=== PATIENT | female | born 1985 | race Caucasian/White ===

== ENCOUNTER 2021-09-30 08:21 | Emergency (ER) | payer BC, MEDICAID ==
[2021-09-30 09:40] LABS: CORONAVIRUS COVID-19 NAA NEGATIVE (NEGATIVE); INFLUENZA A NAA NEGATIVE (NEGATIVE); INFLUENZA B NAA NEGATIVE (NEGATIVE)
[2021-09-30] MEDS ORDERED: Ketorolac 15 MG/ML SDV IM ONE (09:43)
[2021-09-30] MEDS ORDERED: Dexamethasone 4 MG Tab PO ONE (09:49)
--- NOTE | 2021-09-30 09:50 | EDM.PDOC ---
ED HPI GENERAL MEDICAL PROBLEM - General Chief Complaint: General Stated Complaint: SOAR THROAT, BODY ACHES, FEVER, CONGESTED Time Seen by Provider: 09/30/21 08:41 - History of Present Illness INITIAL COMMENTS - FREE TEXT/NARRATIVE: CHIEF COMPLAINT(S): "I feel like I am going to ." HISTORY OF PRESENT ILLNESS: This is a 36-year-old woman with out any reported past medical history who comes to the emergency department with a chief complaint of "I feel like I am going to ." The patient states that she feels like she is going to . The patient states that for the last 2 days she has been experiencing sinus congestion, sore throat, body aches throughout her entire body and a headache which is bifrontal not associated with any blurry vision, double vision, numbness, tingling or weakness. She states that her pain is rated 8 out of 10 and achy. She states that she tried NyQuil but that did not help with the pain and just helped her sleep. There are no exacerbating factors and no relieving factors. Her pain is throughout her body so she denies any radiation. She states that she does have an associated nonproductive cough and did have some nausea last night but denies any current nausea vomiting, drooling, voice changes, stridor, or trismus. She states that she is not vaccinated. She denies any other symptoms REVIEW OF SYSTEMS: Constitutional: Positive for intermittent fever. Eyes: Denies eye pain Ears, Nose, Mouth, & Throat: Positive for sore throat and sinus congestion. Denies earache Cardiovascular: Denies chest pain Respiratory: Positive for nonproductive cough denies shortness of breath Gastrointestinal: Denies Nausea, vomiting, diarrhea, hematochezia. Genitourinary: Denies hematuria Skin:Denies a rash MSK: Positive for body aches Neurological: Positive for headache. Denies blurred vision, numbness, tingling, weakness Psychiatric: Denies depression PAST MEDICAL HISTORY: As per history of present illness and as reviewed below otherwise noncontributory. SURGICAL HISTORY: As per history of present illness and as reviewed below otherwise noncontributory. SOCIAL HISTORY: As per history of present illness and as reviewed below otherwise noncontributory. FAMILY HISTORY: As per history of present illness and as reviewed below otherwise noncontributory. EXAMINATION OF ORGAN SYSTEMS/BODY AREAS: Constitutional: Blood pressure is 127/77, heart rate 98, respiratory rate 16 with an oxygen saturation of 97% on room air. Temperature 36.6 General: Well-appearing woman who is in no acute distress Psychiatric: Appropriate mood and affect. Eyes: No scleral icterus or conjunctival erythema ENMT: Moist mucous membranes. Mild pharyngeal erythema. No tonsillar exudates or swelling. Uvula was midline. No evidence of peritonsillar abscess. No stridor, drooling, trismus. Bilateral nasal turbinates with clear nasal drainage. Cardiovascular: Regular, rate, and rhythm. No gallops, murmurs, or rubs. Bilateral upper extremity pulses symmetric and intact. No peripheral edema. No JVD. Respiratory: Lungs clear to auscultation bilaterally. No wheezes, rales, or rhonchi. Gastrointestinal: Soft, non-tender, non-distended. Normoactive bowel sounds Genitourinary: No suprapubic tenderness Musculoskeletal: Normal range of motion. Skin: No lesions or abrasions. Neurological: Alert, GCS 15 strength and sensation grossly intact in upper and lower extremities bilaterally MEDICAL DECISION MAKING AND COURSE IN THE ED WITH INTERPRETATION/REVIEW OF DIAGNOSTIC STUDIES: This is a 36-year-old woman without any past medical history who comes to the emergency department with viral-like symptoms with cough whose vitals are completely normal. At this time we will provide the patient with Toradol for pain relief. Will obtain Covid and influenza swabs. I do not belie ve any other labs or imaging are indicated. Patient was amenable to this plan DDx: COVID-19, influenza, viral pharyngitis, viral upper respiratory infection Laboratory: Covid, influenza negative After swab I did discuss the results with the patient. At this time I did discuss that she would be stable for discharge. I discussed symptomatic treatment at home. She was amenable to discharge and had no further questions. DISPOSITION: The patient was discharged home in stable condition. The patient will follow up with primary care physician in 3 to 5 days CONDITION: Fair PROCEDURES: None FINAL IMPRESSION(S)/DIAGNOSES: 1. Acute viral upper respiratory infection Justo Yanez M.D. Generalized Pain Score (Numeric/FACES): 8 - Related Data Allergies Allergy/AdvReac Type Severity Reaction Status Date / Time No Known Allergies Allergy Verified 09/30/21 08:40 Past Medical History Other [employer] History: 3 c-sections - Infectious Disease History Infectious Disease History: Reports: None - Past Surgical History GI Surgical History: Reports: Cholecystectomy Social & Family History - Family History Family Medical History: No Pertinent Family History - Tobacco Use Tobacco Use Status *Q: Current Some Day Tobacco User Years of Tobacco use: 15 Packs/Tins Daily: 0.5 - Recreational Drug Use Recreational Drug Use: No ED ROS GENERAL - Review of Systems Review Of Systems: See Below ED EXAM, GENERAL - Physical Exam Exam: See Below Course - Vital Signs Last Recorded V/S: Last Vital Signs Temp 36.6 C 09/30/21 08:40 Pulse 98 09/30/21 08:40 Resp 16 09/30/21 08:40 BP 127/77 09/30/21 08:40 Pulse Ox 97 09/30/21 08:40 - Orders/Labs/Meds Labs: Laboratory Tests 09/30/21 Range/Units 08:48 Influenza Type A RNA NEGATIVE (NEGATIVE) Influenza Type B RNA NEGATIVE (NEGATIVE) SARS-CoV-2 RNA (CHRISTOPHER) NEGATIVE (NEGATIVE) Meds: Medications Discontinued Medications Generic Name Dose Route Start Last Admin Trade Name Freq PRN Reason Stop Dose Admin Dexamethasone 4 mg 09/30/21 09:49 09/30/21 10:13 Dexamethasone 4 Mg Tab PO 09/30/21 09:50 4 mg ONETIME ONE Administration Ketorolac Tromethamine 30 mg 09/30/21 09:43 09/30/21 10:13 Ketorolac 15 Mg/Ml Sdv IM 09/30/21 09:44 30 mg ONETIME ONE Administration Departure - Departure Time of Disposition: 09:50 Disposition: Home, Self-Care 01 Condition: Fair Clinical Impression: Viral URI with cough, Pharyngitis - Discharge Information *PRESCRIPTION DRUG MONITORING PROGRAM REVIEWED*: No *COPY OF PRESCRIPTION DRUG MONITORING REPORT IN PATIENT SCOTT: No Instructions: Viral Respiratory Infection, [id number], Pharyngitis, [id number] Referrals: PCP,None [Primary Care Provider] - Forms: ED Department Discharge Additional Instructions: You were evaluated today on an emergent basis. At this time your Covid and influenza was negative. At this time I do believe you are still experiencing a viral infection. I recommend that you use honey with lemon water or tea for your cough, Tylenol and Motrin for pain relief and rest. If you have any worsening of your symptoms such as shortness of breath, inability to eat or drink, drooling, or you feel like you are not improving I recommend you return to the emergency department. Otherwise I do recommend that you follow-up with your primary care physician within 3 to 5 days for reevaluation. Please use: Tylenol 500-1000mg every 6 hours (DO NOT TAKE MORE THAN 4000mg in 1 day) Ibuprofen 400mg every 6 hours (Take with food as it can cause ulcers, GI upset) Example schedule: 8:00 AM (Tylenol 500-1000mg) 11:00 AM (Ibuprofen 400mg) 2:00 PM (Tylenol 500-1000mg) 5:00 PM (Ibuprofen 400mg) [facility] [address] [place], [place] [id number] [place] [address] The patient is informed of any results of their evaluation and diagnostic workup and all questions are answered. They are given discharge instructions and return precautions. The patient is stable for discharge. The patient states they under stand and agree with the plan and that they will return if their symptoms get worse or if they have any new concerns. The following information is given to patients seen in the emergency department who are being discharged to home. This information is to outline your options for follow-up care. We provide all patients seen in our emergency department with a follow-up referral. The need for follow-up, as well as the timing and circumstances, are variable depending upon the specifics of your emergency department visit. If you don't have a primary care physician on staff, we will provide you with a referral. We always advise you to contact your personal physician following an emergency department visit to inform them of the circumstance of the visit and for follow-up with them and/or the need for any referrals to a consulting specialist. The emergency department will also refer you to a specialist when appropriate. This referral assures that you have the opportunity for follow-up care with a specialist. All of these measure are taken in an effort to provide you with optimal care, which includes your follow-up. Under all circumstances we always encourage you to contact your private physician who remains a resource for coordinating your care. When calling for follow-up care, please make the office aware that this follow-up is from your recent emergency room visit. If for any reason you are refused follow-up, please contact the [facility] Department at and asked to speak to the emergency department charge nurse. Sepsis Event Note (ED) - Evaluation Sepsis Screening Result: No Definite Risk
== END 2021-09-30 10:57 | disposition home or self-care (01) ==
LOC: MW.ED 08:21
DX: J02.9 Acute pharyngitis, unspecified (principal); Z72.0 Tobacco use; Z20.822 Contact with and (suspected) exposure to COVID-19
CPT/HCPCS: 0240U; 96372; 99283; J1885; J8540

== ENCOUNTER 2022-05-16 01:57 | Emergency (ER) | payer MEDICAID ==
[2022-05-16] MEDS ORDERED: Alum Hydro/Mag Hydro/Simeth XS 15 ML, Lidocaine 2% 5 ML PO ONE ×2 (02:24)
[2022-05-16] MEDS ORDERED: Aspirin 81 MG Tab.Chew PO ONE (02:24)
[2022-05-16 03:13] LABS: CARBON DIOXIDE,CO2 27.4 mmol/L (21.0-32.0); POTASSIUM,K 3.5 mmol/L (3.5-5.1)
== END 2022-05-16 04:26 | disposition home or self-care (01) ==
LOC: MW.ED 01:57
DX: R07.89 Other chest pain (principal); K29.70 Gastritis, unspecified, without bleeding
CPT/HCPCS: 36415; 71045; 80053; 83690; 83735; 84484; 84703; 85025; 93005; 99285; A9270; 93010; 99284

== ENCOUNTER 2022-05-29 23:26 | Emergency (ER) | payer MEDICAID | END 2022-05-30 00:26 | disposition left against medical advice (07) | LOC: MW.ED 23:26 | DX: Z53.21 Procedure and treatment not carried out due to patient leaving prior to being seen by health care provider (principal) ==

== ENCOUNTER 2022-05-30 04:30 | Emergency (ER) | payer MEDICAID ==
[2022-05-30] MEDS: Ondansetron 4 MG/2 ML SDV IVPUSH ONE (04:58)
[2022-05-30] MEDS: Morphine 4 MG/ML VIAL IVPUSH ONE (05:05)
[2022-05-30] MEDS: Sodium Chloride 0.9% 1,000 ML IV ONE (05:05)
[2022-05-30 05:28] LABS: CARBON DIOXIDE,CO2 21.7 mmol/L (21.0-32.0); POTASSIUM,K 3.7 mmol/L (3.5-5.1)
[2022-05-30] MEDS: Iopamidol 755 MG/ML 500 ML Multipack Bottle IVPUSH STA (06:22)
[2022-05-30] MEDS: Levofloxacin/Dextrose 5%-Water 750 MG in Premix Bag 1 BAG IV ONE (06:23)
== END 2022-05-30 08:09 | disposition home or self-care (01) ==
LOC: MW.ED 04:30
DX: U07.1 COVID-19 (principal); R11.2 Nausea with vomiting, unspecified; F17.210 Nicotine dependence, cigarettes, uncomplicated; Z79.899 Other long term (current) drug therapy
CPT/HCPCS: 36415; 71275; 74177; 80053; 80305; 81001; 81025; 82550; 83690; 84484; 85025; 85610; 87635; 93005; 96361; 96365; 96375; 99284; J1956; J2270; J2405; J7030; Q9967; 93010; U0002

== ENCOUNTER 2023-04-21 10:28 | Emergency (ER) | payer BC, MEDICAID ==
[2023-04-21] MEDS ORDERED: Morphine 4 MG/ML Syringe IVPUSH ONE (10:56)
[2023-04-21] MEDS ORDERED: Ondansetron 4 MG/2 ML SDV IVPUSH ONE (10:57)
[2023-04-21] MEDS ORDERED: Clindamycin HCl 150 MG Cap PO ONE (10:57)
[2023-04-21] MEDS ORDERED: Lactated Ringers 1,000 ML IV SCH (11:15)
[2023-04-21 11:40] LABS: BASOPHILS PERCENT AUTO 0.2 % (0.0-1.5); EOSINOPHILS ABSOLUTE AUTO 0.2 K/uL (0.0-0.7); EOSINOPHILS PERCENT AUTO 2.7 % (0.0-7.0); HEMATOCRIT 39.3 % (36.0-46.0); HEMOGLOBIN 12.1 g/dL (12.0-16.0); LYMPHOCYTES PERCENT AUTO 23.4 % (16.0-40.0); MEAN CORPUSCULAR HEMOGLOBIN 23.3 pg (27.0-32.0); MEAN CORPUSCULAR HGB CONC 30.8 g/dL (31.0-37.0); MEAN CORPUSCULAR VOLUME 75.6 fL (80.0-98.0); MONOCYTES ABSOLUTE AUTO 0.5 K/uL (0.0-0.8); MONOCYTES PERCENT AUTO 5.8 % (0.0-15.0); NEUTROPHILS ABSOLUTE AUTO 5.9 K/uL (1.4-5.7); NEUTROPHILS PERCENT AUTO 67.9 % (48.0-80.0); NRBC ABSOLUTE 0 K/uL; PLATELET COUNT,PLT 315 K/uL (150-400); WHITE BLOOD CELL COUNT,WBC 8.63 K/uL (4.0-11.0)
[2023-04-21 12:07] LABS: ALBUMIN 3.3 g/dL (3.4-5.0); BILIRUBIN TOTAL 0.2 mg/dL (0.2-1.0); CALCIUM 8.6 mg/dL (8.5-10.1); CARBON DIOXIDE,CO2 24.9 mmol/L (21.0-32.0); CREATININE 0.7 mg/dL (0.6-1.0); EST CRCL DRUG DOSING (CG) 79.04 mL/min; POTASSIUM,K 4.4 mmol/L (3.5-5.1); PROTEIN TOTAL,TP 7.2 g/dL (6.4-8.2)
[2023-04-21 12:08] LABS: A/G RATIO 0.9 (0.9-1.6)
[2023-04-21] MEDS ORDERED: Iopamidol 755 MG/ML 500 ML Multipack Bottle IVPUSH STA (12:53)
== END 2023-04-21 14:11 | disposition home or self-care (01) ==
LOC: MW.ED 10:28
DX: K04.7 Periapical abscess without sinus (principal); F17.210 Nicotine dependence, cigarettes, uncomplicated; Z98.890 Other specified postprocedural states
CPT/HCPCS: 36415; 70491; 80053; 85025; 96361; 96374; 96375; 99284; A9270; J2270; J2405; J7120; Q9967